=== PATIENT | male | born 1950 | race Caucasian/White ===

== ENCOUNTER 2024-10-22 23:52 | Emergency (ER) | payer OTHER, MEDICARE, MEDICAID, SELFPAY ==
--- NOTE | ~2024-10-22 | XR_ITS ---
EXAMINATION: XR hip RT 2V w AP pelvis DATE: 10/23/2024 05:19 INDICATION: Hip pain post fall TECHNIQUE: Anteroposterior view of the pelvis and anteroposterior and frog-leg lateral views of the r ight hip were obtained. COMPARISON: None. FINDINGS: Bone alignment is normal. No fracture. Postoperative changes of a combined instrumented anterior and posterior lower lumbar spinal fusion with interbody fusion devices at L3-L4 through L5-S1 and bilater al vertical mango and pedicle screw fixations extending to the sacrum with bilateral iliac screws. 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 Mild bilateral hip osteo arthritis. Enthesopathic calcifications at the ischial tuberosity origins of the bilateral hamstring tendons. IMPRESSION: 1. Mild osteoarthritis at the bilateral hips. No acute osseous abnormality. 2. Lower lumbar and lumbosacral instrumented anterior and posterior spinal fusions including instrume nted fusion at the bilateral sacroiliac joints. Reviewed, dictated and finalized at location A. [employer] IMPRESSION: 1. Mild osteoarthritis at the bilateral hips. No acute osseous abnormality. 2. Lower lumbar and lumbosacral instrumented anterior and posterior spinal fusi ons including instrumented fusion at the bilateral sacroiliac joints.
[2024-10-23] VITALS: BP 149/70; PULSE 98; RESP 18; TEMP 37.1; O2SAT 97
--- NOTE | 2024-10-23 04:44 | ED_ITS ---
HPI - Extremity Problem General Chief complaint: Extremity Problem,Nontraumatic Stated complaint: hip pain Time Seen by Provider: 10/23/24 04:33 History of Present Illness HPI Narrative: 74-year-old male with a past medical history significant for arthritis, multiple lumbar surgeries status post degenerative disc disease. Today patient presents to the emergency department for evaluation of right hip pain for last 2 days. He was just at [place] earlier this morning and underwent x-rays and got pain control medications and was discharged home with no acute findings. He states that his medications were off and he is having worsening pain in his right hip so he wants to get repeat evaluation. Denies any new injuries or trauma. States that he woke up feeling a pain in his right hip and feels like he pulled a muscle. Denies any falls today or yesterday. No headache, vision change, nausea, vomiting, chest pain, shortness a breath. No weakness or fatigue. He has chronic baseline neuropathy but nothing worse than normal. He has full strength and sensation throughout both arms and legs. Notes that when he puts weight on his right leg he has more pain in his right hip. Related Data Allergies Allergy/AdvReac Type Severity Reaction Status Date / Time No Known Allergies Allergy Verified 10/23/24 06:05 Review of Systems Review of Systems: As reviewed above in HPI Exam Narrative: GENERAL: [Well-appearing, well-nourished, and in no acute distress.] HEAD: [Normocephalic, atraumatic.] EYES: [PERRLA and EOMI.] ENT: Nares clear, no rhinorrhea or epistaxis. Mucous membranes moist. NECK: Supple. CHEST: [Clear to auscultation. No respiratory distress.] HEART: [Regular rate and rhythm]. No murmur heard. Plus 2+ peripheral pulses. Warm well-perfused extremities. ABDOMEN: [Soft, nondistended], [nontender], [No rigidity or guarding] EXTREMITIES: Postsurgical scars throughout the lumbar and thoracic column posteriorly, no step-offs deformities. Reproducible tenderness to palpation with straight leg raise of the right lower extremity, tenderness with palpation of the lateral aspect of his right hip without any step-offs deformities. EHL and FHL 5/5 strength, able to flex and extend at the hip and knee. Extensor mechanism is intact bilaterally at the knee. SKIN: Warm, dry, no rash. NEURO: [No focal deficits]. Alert and oriented [x3.] PSYCH: [Normal mood and affect.] Course Vital Signs Vital signs: Vital Signs Temperature 37.1 C 10/23/24 00:00 Pulse Rate 98 10/23/24 00:00 Respiratory Rate 18 10/23/24 00:00 Blood Pressure 149/70 H 10/23/24 00:00 Pulse Oximetry 97 10/23/24 00:00 Oxygen Delivery Room Air 10/23/24 00:00 Temperature 37.1 C 10/23/24 00:00 Pulse Rate 96 10/23/24 08:05 Respiratory Rate 16 10/23/24 08:05 Blood Pressure 125/82 10/23/24 08:05 Pulse Oximetry 99 10/23/24 08:05 Oxygen Delivery Room Air 10/23/24 00:00 MDM - Extremity (Nontraumatic) MDM Narrative Medical decision making narrative: 74-year-old male with significant osteoarthritis and lumbar disc disease history status post multiple procedures. Today presents to the emergency department for atraumatic right hip pain. States he felt like he pulled a muscle in his sleep. Was a different emergency department today with negative x-rays and had improvement with pain control and sent home. He states he is having recurrence of his pain after his pain medications were off. Denies any new falls or injuries. He has warm well-perfused extremities with good symmetric pulses. Full extensor mechanisms and full strength in the EHL and FHL in both legs. No sensory deficits worsened baseline chronic neuropathy. No midline tenderness or step-offs in his back. Overall no red flag symptoms of his leg pain. Will treat with analgesia medications including morphine and Toradol and obtain x- rays of his hip and pelvis to see if there are any bony anomalies that would be acute. Xray without acute injury. Re-eval showed improvement in pain. Patient able to ambulate with the assistance of his cane which he uses at baseline. Stable for discharge home at this time given his improvement in pain and mobility. [facility] he has an appointment scheduled for several weeks from now. Discharge Plan Discharge Clinical Impression: Chronic hip pain Patient Disposition: Home, Self-Care Condition: Stable Instructions: Antibiotic Form, Hip Pain (ED) Additional Instructions: Please follow up with your doctor; you can always return for any further issues. Patient Language: Swedish Follow-up/Referrals: UNKNOWN,DOCTOR [Primary Care Provider] - Time of Disposition: 08:41
[2024-10-23] MEDS: KETOROLAC 15 MG/ML VIAL (*BKC) IV PUSH (06:01)
[2024-10-23] MEDS: MORPHINE SULFATE (*CRX) 4 MG/ML INJ IV PUSH (06:02)
[2024-10-23] MEDS: Please add drug allergy info to patient profile. 1 EACH XX (06:03)
[2024-10-23 08:05] VITALS: BP 125/82; PULSE 96; RESP 16; O2SAT 99
== END 2024-10-23 08:05 | disposition home or self-care (01) ==
PROVIDERS: Emergency Provider Student in an Organized Health Care Education/Training Program
DX: M25.551 Pain in right hip (principal); G89.29 Other chronic pain; M16.0 Bilateral primary osteoarthritis of hip; Z98.1 Arthrodesis status
CPT/HCPCS: 73502; 96374; 96375; 99284; J1885; J2270